=== PATIENT | female | born 1960 | race Caucasian/White ===

== ENCOUNTER 2024-06-28 17:18 | Emergency (ER) | payer MEDICARE, MEDICAID, SELFPAY ==
[2024-06-28 17:34] VITALS: BP 128/73; PULSE 90; RESP 20; TEMP 36.8; O2SAT 99
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
[2024-06-28 17:55] VITALS: BP 133/77; PULSE 89; RESP 15; TEMP 36.8; O2SAT 100
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
[2024-06-28 18:18] VITALS: PULSE 91; RESP 17; O2SAT 98; BMI 16.4
[2024-06-28] MEDS: ONDANSETRON ODT 4 MG TABRAP PO (18:51)
[2024-06-28] MEDS: oxyCODONE HCL 5 MG IR TAB PO (18:56)
[2024-06-28 19:50] VITALS: BP 133/81; PULSE 76; RESP 12; TEMP 36.7; O2SAT 99
== END 2024-06-28 20:01 | disposition home or self-care (01) ==
PROVIDERS: Emergency Provider Emergency Medicine; PCP Family Medicine
DX: S16.1XXA Strain of muscle, fascia and tendon at neck level, initial encounter (principal); S39.012A Strain of muscle, fascia and tendon of lower back, initial encounter; V49.50XA Passenger injured in collision with unspecified motor vehicles in traffic accident, initial encounter; G30.9 Alzheimer's disease, unspecified
CPT/HCPCS: 70450; 72100; 72125; 72128; 72131; 99284; Q0162; A9270

== ENCOUNTER 2024-10-11 07:00 | Day surgery (SDC) | payer OTHER, MEDICAID, SELFPAY ==
[2024-10-10 09:47] VITALS: BMI 17.6
[2024-10-11] VITALS (11 sets, daily range): BP systolic 114–130; BP diastolic 65–95; PULSE 59–83; RESP 10–20; TEMP 36.4–36.6; O2SAT 98–100; BMI 16.1
[2024-10-11] MEDS: SODIUM CHLORIDE 0.9% 500 ML 500 ML 100 ML IV (08:05)
[2024-10-11] MEDS: MIDAZOLAM INJ 1 MG/ML VIAL 2 ML (ASD USE ONLY) 2 MG IVP (08:10)
[2024-10-11] MEDS: fentaNYL CIT INJ 50 mCg/ML AMP 2ML (ASD USE ONLY) IVP (08:15)
== END 2024-10-11 09:08 | disposition home or self-care (01) ==
PROVIDERS: PCP Family Medicine; Referring Provider Surgery; Visit Provider Surgery
PROC: 0DBE8ZX Excision of Large Intestine, Via Natural or Artificial Opening Endoscopic, Diagnostic (ICD-10-PCS; CPT 45380; principal; 2024-10-11 08:00)
DX: D12.3 Benign neoplasm of transverse colon (principal); K64.1 Second degree hemorrhoids; K57.31 Diverticulosis of large intestine without perforation or abscess with bleeding
CPT/HCPCS: 45385; 45380; J1200; J2250; J3010; J7999

== ENCOUNTER → 2025-03-07 | Outpatient (CLI) | payer OTHER, MEDICAID, SELFPAY ==
[2025-03-07 12:26] LABS: Basophils # (Auto) 0.1 Thou/mm3 (0.0-0.2); Basophils % (Auto) 1 % (0-2.5); Eosinophils # (Auto) 0.2 Thou/mm3 (0.0-0.5); Eosinophils % (Auto) 3 % (0-10); Hematocrit 39.7 % (36.0-46.0); Hemoglobin 13.1 g/dL (12.0-16.0); Immature Granulocytes Auto 0.01 Thou/mm3 (0.00-0.00); Lymphocytes # (Auto) 1.3 Thou/mm3 (1.0-4.8); Lymphocytes % (Auto) 22 % (10-50); Mean Corpuscular HGB Conc 33.0 g/dl (31.0-37.0); Mean Corpuscular Hemoglobin 30.5 pg (25.0-35.0); Mean Corpuscular Volume 92 fL (80-100); Monocytes # (Auto) 0.3 Thou/mm3 (0.0-0.8); Monocytes % (Auto) 5 % (0-12); Neutrophils # (Auto) 4.2 Thou/mm3 (1.8-7.7); Neutrophils % (Auto) 69 % (37-80); Nucleated Red Blood Cell # 0.00 Thou/mm3 (0.00-0.00); Nucleated Red Blood Cell % 0 /100 WBC (0); Platelet Count 192 Thou/mm3 (140-440); RDW Standard Deviation 40.6 fL (36.4-46.3); Red Blood Count 4.30 Miln/mm3 (4.00-5.20); White Blood Count 6.1 Thou/mm3 (3.6-11.0)
[2025-03-07 13:30] LABS: Alanine Aminotransferase 11 U/L (10-49); Albumin, Serum 5.0 gm/dL (3.4-4.8); Albumin/Globulin Ratio 2.1 (1.2-2.2); Alkaline Phosphatase 66 U/L (46-116); Anion Gap 12 (7-16); Aspartate Amino Transferase 26 U/L (0-34); BUN/Creatinine Ratio 23 Ratio (12-20); Bilirubin,Total 0.8 mg/dL (0.3-1.2); Blood Urea Nitrogen 18 mg/dL (9-23); Calcium 9.6 mg/dL (8.3-10.6); Calcium (Corrected) 9.6 mg/dL (8.5-10.1); Carbon Dioxide 28.2 mMol/L (20.0-31.0); Chloride 105 mMol/L (98-107); Creatinine (Component) 0.8 mg/dL (0.6-1.3); Globulin 2.4 gm/dL (2.3-3.5); Glucose 94 mg/dL (74-106); Osmolality,Calculated 290 (275-295); Potassium 4.2 mMol/L (3.4-5.1); Sodium 145 mMol/L (136-145); Thyroid Stimulating Hormone 2.10 uIU/mL (0.55-4.78); Total Protein 7.4 gm/dL (5.7-8.2); eGFR > 60 See Note
[2025-03-07 13:55] LABS: Cardiac Risk Estimate 3.6 RATIO (3.7-5.6); Cholesterol 250 mg/dL (132-200); HDL Cholesterol 69 mg/dL (40-60); LDL Cholesterol,Calculated 167 mg/dL (0-130); Triglycerides 69 mg/dL (30-150)
== END | disposition home or self-care (01) ==
LOC: COPL 11:07
PROVIDERS: PCP Family Medicine; Referring Provider Nurse Practitioner Family; Visit Provider Nurse Practitioner Family
DX: J44.9 Chronic obstructive pulmonary disease, unspecified (principal); G30.0 Alzheimer's disease with early onset
CPT/HCPCS: 36415; 80053; 80061; 84443; 85025